=== PATIENT | female | born 1995 | race Caucasian/White ===

== ENCOUNTER 2018-10-16 00:06 | Inpatient (IN) | payer OTHER ==
[~2018-10-16] VITALS: Ht 160 cm; Wt 59.6 kg
[2018-10-16 00:19] VITALS: Ht 160 cm; Wt 59.6 kg
[2018-10-16 01:05] LABS: BASOPHIL % 0.4 % (0-2); PLATELET COUNT 252 x10^3mcL (130-400); RED CELL DISTRIBUTION WIDTH 13.9 % (11.5-14.5)
[2018-10-16 01:12] LABS: CALCIUM 9.2 mg/dL (8.5-10.1); CARBON DIOXIDE 25.6 mmol/L (21-32); CHLORIDE SERUM 104 mmol/L (98-107); CREATININE SERUM 0.6 mg/dL (0.6-1.0); GFR1 > 60 mL/min; GLUCOSE SERUM 103 mg/dL (74-106); POTASSIUM SERUM 4.6 mmol/L (3.5-5.1); SODIUM SERUM 138 mmol/L (136-145)
[2018-10-16 01:17] LABS: ALBUMIN 3.7 g/dL (3.4-5.0); ALKALINE PHOSPHATASE 62 U/L (46-116); ALT/SGPT 24 U/L (14-59); AST/SGOT 32 U/L (15-37); BILIRUBIN TOTAL 0.37 mg/dL (0.20-1.00); TOTAL PROTEIN, SERUM 7.1 g/dL (6.4-8.2)
[2018-10-16 02:03] LABS: CHOLESTEROL/HDL RATIO 4.8; FREE T4 1.26 ng/dL (0.76-1.46)
[2018-10-16 05:16] LABS: AMPHETAMINE QUAL UR NONE DETECTED (See below)
[2018-10-16 06:41] LABS: PHOSPHOROUS 4.9 mg/dL (2.5-4.9)
[2018-10-16 07:07] LABS: UA SPECIFIC GRAVITY <=1.005 (1.005-1.035); microscopic required? YES; urine erythrocyte TRACE (NEGATIVE)
[2018-10-16] MEDS ORDERED: COLACE100 MG (07:22)
[2018-10-16] MEDS ORDERED: DULCOLAX10 M1 (07:22)
[2018-10-16] MEDS ORDERED: BACLOFEN10 MG PO (07:22)
[2018-10-16] MEDS ORDERED: AMPYRA10 M1 (07:22)
[2018-10-16] MEDS ORDERED: MORPHINE SULFAT15 MG (07:23)
[2018-10-16] MEDS ORDERED: NORCO1 TA2 PO (07:23)
[2018-10-16] MEDS ORDERED: NEU300 (07:23)
[2018-10-16] MEDS ORDERED: CLARITIN10 MG (07:23)
[2018-10-16] MEDS ORDERED: XAN1 (07:24)
[2018-10-16 09:58] VITALS: BP 120/84
[2018-10-16 10:21] VITALS: BP 120/84
[2018-10-16 13:57] VITALS: BP 98/63
[2018-10-16 17:36] VITALS: BP 99/50
[2018-10-16 20:29] VITALS: BP 120/86
[2018-10-17 06:13] VITALS: BP 96/43
[2018-10-17 06:37] LABS: CALCIUM 8.4 mg/dL (8.5-10.1); CARBON DIOXIDE 28.5 mmol/L (21-32); CHLORIDE SERUM 108 mmol/L (98-107); CREATININE SERUM 0.5 mg/dL (0.6-1.0); GFR1 > 60 mL/min; GLUCOSE SERUM 103 mg/dL (74-106); POTASSIUM SERUM 3.7 mmol/L (3.5-5.1); SODIUM SERUM 144 mmol/L (136-145)
[2018-10-17 08:43] LABS: BASOPHIL % 0.6 % (0-2); PLATELET COUNT 177 x10^3mcL (130-400); RED CELL DISTRIBUTION WIDTH 13.7 % (11.5-14.5)
[2018-10-17 09:32] VITALS: BP 117/72
[2018-10-17 13:42] VITALS: BP 104/47
[2018-10-17 17:19] VITALS: BP 88/32
[2018-10-17 21:53] VITALS: BP 93/52
[2018-10-18 04:58] VITALS: BP 118/78
[2018-10-18 06:23] LABS: CALCIUM 8.5 mg/dL (8.5-10.1); CARBON DIOXIDE 32.7 mmol/L (21-32); CHLORIDE SERUM 109 mmol/L (98-107); CREATININE SERUM 0.5 mg/dL (0.6-1.0); GFR1 > 60 mL/min; GLUCOSE SERUM 97 mg/dL (74-106); MAGNESIUM 1.8 mg/dL (1.8-2.4); PHOSPHOROUS 3.8 mg/dL (2.5-4.9); POTASSIUM SERUM 4.2 mmol/L (3.5-5.1); SODIUM SERUM 145 mmol/L (136-145)
[2018-10-18 06:39] LABS: BASOPHIL % 0.7 % (0-2); PLATELET COUNT 160 x10^3mcL (130-400); RED CELL DISTRIBUTION WIDTH 13.9 % (11.5-14.5)
[2018-10-18 09:44] VITALS: BP 136/90
[2018-10-18 12:09] VITALS: BP 102/71
[2018-10-18 17:55] VITALS: BP 144/101
[2018-10-18 20:53] VITALS: BP 150/95
[2018-10-19 05:29] VITALS: BP 128/79
[2018-10-19 07:47] LABS: CARBON DIOXIDE 26.2 mmol/L (21-32); CHLORIDE SERUM 106 mmol/L (98-107); CREATININE SERUM 0.4 mg/dL (0.6-1.0); GFR1 > 60 mL/min; GLUCOSE SERUM 89 mg/dL (74-106); POTASSIUM SERUM 4.6 mmol/L (3.5-5.1); SODIUM SERUM 141 mmol/L (136-145)
[2018-10-19 07:54] LABS: BASOPHIL % 0.2 % (0-2); PLATELET COUNT 196 x10^3mcL (130-400); RED CELL DISTRIBUTION WIDTH 13.3 % (11.5-14.5)
[2018-10-19 08:55] VITALS: BP 137/94
[2018-10-19 11:45] VITALS: BP 143/103
[2018-10-19 12:36] VITALS: BP 142/100
== END 2018-10-19 13:10 | disposition short-term general hospital (02) | DRG 53 ==
LOC: ED 00:06 → DU 05:23
PROVIDERS: Emergency Medicine; ADMIT Internal Medicine
DX: G40.409 Other generalized epilepsy and epileptic syndromes, not intractable, without status epilepticus (principal); G82.20 Paraplegia, unspecified; Z93.0 Tracheostomy status; G90.8 Other disorders of autonomic nervous system; Z86.718 Personal history of other venous thrombosis and embolism; F41.9 Anxiety disorder, unspecified
CPT/HCPCS: 83880; 84439; A9577; G0480; J1200; J1650; J1885; J2060; J2270; J2405; J2930; J3490; J7030; J7620; Q0092; Q9967